=== PATIENT | male | born 1975 | race Caucasian/White ===

== ENCOUNTER 2017-12-08 07:15 | Day surgery (SDC) | payer OTHER ==
[~2017-12-08] VITALS: Ht 188 cm; Wt 111.1 kg
[~2017-12-08 07:15] MED LIST: BACITRACIN 50,000 UNIT ONE; BUPIVACAINE/PF 0.5% ONE; EPINEPHRINE 1 MG/ML, 1ML ONE; LISI-167 PO; OMEP20TA62 PO; THROMBIN 5,000 UNIT VIAL TP ONE; VANCOMYCIN 1,000 MG ONE
[2017-12-08] MEDS ORDERED: LACTATED RINGERS 1,000 ML IV SCH (07:45)
[2017-12-08] MEDS ORDERED: OXYcodone IR 5MG TABLET PO ONE (08:00)
[2017-12-08] MEDS ORDERED: GABAPENTIN 300 MG CAPSULE PO ONE (08:00)
[2017-12-08] MEDS ORDERED: ACETAMINOPHEN 500 MG TABLET PO ONE (08:00)
[2017-12-08 08:16] VITALS: BP 137/90
[2017-12-08] MEDS ORDERED: METOPROLOL 1 MG/ML, 5ML IV PRN (08:30)
[2017-12-08] MEDS ORDERED: OXYcodone 5 MG/5 ML ORAL.SOL UDC PO PRN (08:30)
[2017-12-08] MEDS ORDERED: DIAZEPAM 5 MG/ML, 2ML IVPush PRN (08:30)
[2017-12-08] MEDS ORDERED: morphine SULFATE 10 MG/ML, 1ML IV PRN (08:30)
[2017-12-08] MEDS ORDERED: LABETALOL 5MG/ML, 20ML IV PRN (08:30)
[2017-12-08] MEDS ORDERED: ALBUTEROL SULFATE 2.5 MG/3 ML NPPB PRN (08:30)
[2017-12-08] MEDS ORDERED: ONDANSETRON 2MG/ML, 2ML IVPush PRN (08:30)
[2017-12-08] MEDS ORDERED: MEPERIDINE/PF 25MG/0.5ML IVPush PRN (08:30)
[2017-12-08] MEDS ORDERED: PROMETHAZINE 25 MG/ML, 1ML IV PRN (08:30)
[2017-12-08] MEDS ORDERED: hydrALAzine 20 MG/ML, 1ML IV PRN (08:30)
[2017-12-08] MEDS ORDERED: EPHEDRINE 50 MG/ML, 1ML IVPush PRN (08:30)
[2017-12-08] MEDS ORDERED: MIDAZOLAM 1 MG/ML, 2ML ONE (09:24)
[2017-12-08] MEDS ORDERED: FENTANYL PF 100 MCG/2ML ONE ×2 (09:24→11:14)
[2017-12-08] MEDS ORDERED: PROPOFOL 10 MG/ML, 20ML ONE (09:28)
[2017-12-08] MEDS ORDERED: CEFAZOLIN 1,000 MG ONE ×2 (09:28)
[2017-12-08] MEDS ORDERED: ROCURONIUM 10 MG/ML,10ML ONE (09:28)
[2017-12-08] MEDS ORDERED: DEXAMETHASONE 4 MG/ML, 1ML ONE ×2 (09:28)
[2017-12-08] MEDS ORDERED: NEOSTIGMINE 1 MG/ML, 10ML ONE (10:27)
[2017-12-08] MEDS ORDERED: GLYCOPYRROLATE 0.2MG/1ML, 5ML ONE (10:27)
[2017-12-08] MEDS ORDERED: ONDANSETRON 2MG/ML, 2ML ONE (10:27)
[2017-12-08] MEDS: FENTANYL PF 100 MCG/2ML IV PRN ×2 (11:16→11:22)
[2017-12-08] MEDS ORDERED: OXYcodone 5 MG/5 ML ORAL.SOL UDC ONE (11:24)
[2017-12-08] MEDS ORDERED: morphine SULFATE 10 MG/ML, 1ML ONE (11:36)
== END 2017-12-08 13:35 ==
LOC: OUT 07:15
PROVIDERS: ATTEND Neurological Surgery
DX: M51.16 Intervertebral disc disorders with radiculopathy, lumbar region (principal); I10 Essential (primary) hypertension; Z91.013 Allergy to seafood; K21.9 Gastro-esophageal reflux disease without esophagitis
CPT/HCPCS: 63030; 72100; J0171; J0690; J1100; J2250; J2270; J2405; J2704; J2710; J3010; J3490; J7120; J3370

== ENCOUNTER 2017-12-10 18:09 | Emergency (ER) | payer OTHER ==
[~2017-12-10] VITALS: Ht 188 cm; Wt 114.2 kg
[~2017-12-10 18:09] MED LIST changes: -BACITRACIN 50,000 UNIT ONE; -BUPIVACAINE/PF 0.5% ONE; -EPINEPHRINE 1 MG/ML, 1ML ONE; -THROMBIN 5,000 UNIT VIAL TP ONE; -VANCOMYCIN 1,000 MG ONE
[2017-12-10] MEDS ORDERED: SODIUM CHLORIDE 0.9% 1,000 ML IV ONE (18:24)
[2017-12-10] MEDS ORDERED: SODIUM CHLORIDE 0.9% 1,000ML IVBOLUS ONE (18:30)
[2017-12-10] MEDS ORDERED: FAMOTIDINE 20 MG/2 ML IVPush ONE (18:30)
[2017-12-10] MEDS ORDERED: SODIUM CHLORIDE FLUSH 10ML SYR IVF ONE (18:30)
[2017-12-10] MEDS ORDERED: ONDANSETRON 2MG/ML, 2ML IVPush ONE (18:30)
[2017-12-10] MEDS ORDERED: FAMOTIDINE 20 MG/2 ML ONE (18:51)
[2017-12-10] MEDS ORDERED: ONDANSETRON 2MG/ML, 2ML ONE (18:51)
[2017-12-10 19:01] LABS: BASOPHILS # (AUTO) 0.04 x10^3/uL (0-0.1); BASOPHILS % (AUTO) 0 % (0-1); EOSINOPHILS % (AUTO) 1 % (1-7); LYMPHOCYTES # (AUTO) 1.73 x10^3/uL (1-3.4); LYMPHOCYTES % (AUTO) 15 % (22-44); MD NO; MEAN CORPUSCULAR HEMOGLOBIN 30.1 pg (27.5-34.5); MEAN CORPUSCULAR HGB CONC 34.1 g/dL (33.2-36.2); MEAN CORPUSCULAR VOLUME 88.2 fL (81-97); MEAN PLATELET VOLUME 9.4 fL (7.4-10.4); MONOCYTES # (AUTO) 1.07 x10^3/uL (0.2-0.8); MONOCYTES % (AUTO) 9 % (2-9); NEUTROPHILS # (AUTO) 8.96 x10^3/uL (1.8-6.8); NEUTROPHILS % (AUTO) 75 % (42-75); PLATELET COUNT 191 x10^3/uL (130-400); RED BLOOD COUNT 4.67 x10^6/uL (4.38-5.82); RED CELL DISTRIBUTION WIDTH 13.4 % (9.4-14.8)
[2017-12-10 19:06] LABS: ALANINE AMINOTRANSFERASE 38 U/L (12-78); ALBUMIN 3.3 g/dL (3.4-5.0); ANION GAP 8 mmol/L (5-15); CALCIUM 8.2 mg/dL (8.5-10.1); CHLORIDE 104 mmol/L (98-107); CREATININE 1.09 mg/dL (0.7-1.3)
[2017-12-10 19:08] LABS: ALKALINE PHOSPHATASE 57 U/L (45-117); BILIRUBIN,TOTAL 0.7 mg/dL (0.2-1.0); TOTAL PROTEIN 6.9 g/dL (6.4-8.2)
[2017-12-10] MEDS ORDERED: PROMETHAZINE 25 MG/ML, 1ML IM ONE (20:00)
[2017-12-10] MEDS ORDERED: DIPHENHYDRAMINE 50 MG/ML, 1ML IVPush ONE (20:00)
[2017-12-10 20:14] LABS: MICROSCOPIC NOT IND
[2017-12-10] MEDS ORDERED: DIPHENHYDRAMINE 50 MG/ML, 1ML ONE (20:20)
[2017-12-10] MEDS ORDERED: PROMETHAZINE 25 MG/ML, 1ML ONE (20:20)
[2017-12-10 20:39] LABS: CULTURE INDICATED? NO
[2017-12-10 21:39] VITALS: BP 119/76
== END 2017-12-10 21:41 | disposition home or self-care (01) ==
LOC: ED 19:25
DX: K29.00 Acute gastritis without bleeding (principal)
CPT/HCPCS: 36415; 71045; 80053; 81003; 83605; 84145; 85025; 93005; 96361; 96372; 96374; 96375; 99285; J1200; J2405; J2550; J7030; S0028